=== PATIENT | female | born 1990 | race African-American/Black ===

== ENCOUNTER 2017-08-13 17:28 | Emergency (ER) | payer MEDICAID, OTHER ==
[~2017-08-13] VITALS: Ht 180.3 cm; Wt 78.0 kg
[~2017-08-13 17:28] MED LIST: FERR325T PO
[2017-08-13 17:43] VITALS: BP 130/78; PULSE 98; RESP 18; TEMP 100.9; O2SAT 100
[2017-08-13] MEDS ORDERED: LEXA20TA PO (17:57)
[2017-08-13] MEDS ORDERED: AZIT250T3 PO (18:35)
[2017-08-13] MEDS ORDERED: BENZ100 PO (18:35)
[2017-08-13] MEDS ORDERED: PRED20 PO (18:35)
[2017-08-13] MEDS ORDERED: ALBUAER3 INH (18:35)
--- NOTE | 2017-08-13 18:35 | PD ---
HPI Chief Complaint: Cold / Flu Symptoms Time Seen by Provider: 18:15 Travel History International Travel<30 days: No Contact w/Intl Traveler<30days: No Traveled to known affect area: No History of Present Illness HPI This is a 26-year-old female here with productive cough and fever 4 days. She is reporting colored sputum. Symptom severity is moderate. No aggravating or alleviating factors. PFSH Past Medical History Asthma: Yes (CHILDHOOD) Depression: Yes Diminished Hearing: No Immune Disorder: Yes Reproductive: Yes (GENITAL HERPES) Immunizations Current: Yes Tetanus Vaccination: < 5 Years ?: Not LMP: 08/06/2017 : 2 Miscarriage: 1 Ovarian Cysts: Yes (RIGHT SIDE) Past Surgical History Section: Yes (2) Oral Surgery: Yes Social History Alcohol Use: No Tobacco Use: No Substance Use: No Allergies-Medications (Allergen,Severity, Reaction): Coded Allergies: hydrocodone (Unverified Allergy, Mild, VOMITING, 08/13/17) diphenhydramine (Unverified Adverse Reaction, Intermediate, HALLICINATIONS , 08/13/17) Reported Meds & Prescriptions Reported Meds & Active Scripts Active Reported Lexapro (Escitalopram Oxalate) 20 Mg Tab 20 Mg PO DAILY Review of Systems Except as stated in HPI: all other systems reviewed are Neg General / Constitutional: Positive: Fever Eyes: No: Visual changes HENT: No: Headaches Cardiovascular: No: Chest Pain or Discomfort Respiratory: Positive: Cough Gastrointestinal: No: Abdominal Pain Genitourinary: No: Dysuria Musculoskeletal: No: Pain Skin: No Rash Physical Exam Narrative GENERAL: Alert and nontoxic appearing 26-year-old female. SKIN: Warm and dry. No rash. HEAD: Normocephalic. EYES: No injection or drainage. Ears/nose/throat: No TM erythema. Clear nasal discharge. No pharyngeal erythema, tonsillar hypertrophy or exudate. NECK: Supple, trachea midline. No meningismus CARDIOVASCULAR: Regular rate and rhythm without murmurs, gallops, or rubs. RESPIRATORY: Breath sounds equal bilaterally. No accessory muscle use. Rhonchorous cough with harsh breath sounds. GASTROINTESTINAL: Abdomen soft, non-tender, nondistended. MUSCULOSKELETAL: No cyanosis, or edema. BACK: Nontender without obvious deformity. No CVA tenderness. Data Data Last Documented VS Vital Signs Date Time Temp Pulse Resp B/P (MAP) Pulse Ox O2 Delivery O2 Flow Rate FiO2 08/13/17 18:02 18 100 Room Air 08/13/17 17:43 100.9 98 130/78 (95) MDM Medical Decision Making Medical Screen Exam Complete: Yes Emergency Medical Condition: Yes Differential Diagnosis Influenza, bronchitis, pneumonia Narrative Course 6-year-old female here with productive cough and fever 4 days. On exam she has a rhonchorous cough with green phlegm. She'll be treated with azithromycin , steroids, bronchodilators. Diagnosis Primary Impression: Bronchitis Referrals: Primary Care Physician Additional Instructions: Medications as prescribed. Stay hydrated by drinking plenty of fluids. Return if he developed new or worsening symptoms. Scripts Benzonatate (Tessalon Perles) 100 Mg Cap 200 MG PO TID Y for COUGH, #14 CAP 0 Refills Prov: Ayana Kaminski 08/13/17 Albuterol 8.5 GM Inh (Proair Hfa 8.5 GM Inh) 90 Mcg/Act Aer 2 PUFF INH Q4-6H Y for SHORTNESS OF BREATH, #1 INHALER 0 Refills 108 mcg/actuation Prov: Ayana Kaminski 08/13/17 Prednisone (Prednisone) 20 Mg Tab 40 MG PO DAILY, #10 TAB 0 Refills Take 40 mg (2 tablets) daily for 5 days Prov: Ayana Kaminski 08/13/17 Azithromycin (Azithromycin) 250 Mg Tab 250 MG PO DIRECTED for Infection, #6 TAB 0 Refills Take 2 tabs (500 mg) on day 1 then 1 tab daily x 4 days. Prov: Ayana Kaminski 08/13/17 Disposition: 01 DISCHARGE HOME Condition: Stable Ayana Kaminski Aug 13, 2017 18:35
== END 2017-08-13 18:58 | disposition home or self-care (01) ==
LOC: PHEFT 17:28
DX: J40 Bronchitis, not specified as acute or chronic (principal); R05 Cough
CPT/HCPCS: 99284